=== PATIENT | female | born 1955 | race Caucasian/White ===

== ENCOUNTER 2020-06-07 08:20 | Day surgery (SDC) | payer MEDICARE, OTHER ==
[2020-06-07] MEDS ORDERED: LACTATED RINGERS 1,000 ML IV ONE (08:45)
[2020-06-07] MEDS ORDERED: fentaNYL 250 MCG/5 ML VIAL ONE (09:13)
[2020-06-07] MEDS ORDERED: MIDAZOLAM 2 MG/2 ML VIAL ONE ×3 (09:13→10:14)
--- NOTE | 2020-06-07 09:42 | HISTORY & PHYSICAL EXAMINATION ---
Chief Complaint - Chief Complaint Chief Complaint: history colon polyps History of Present Illness - History Obtained From Records Reviewed: yes History obtained from: pt Exam Limitations: none - History of Present Illness HPI Comment/Other: History of colon polyps. Last colonoscopy over 5 years ago. No lower intestinal symptoms. History - Past Medical History Cardiovascular: reports: Hypertension Respiratory: reports: None Endocrine/Autoimmune: reports: None GI: reports: None : reports: None HEENT: reports: None Psych: reports: None Musculoskeletal: reports: None Derm: reports: None MRSA Hx?: No - Past Surgical History Ortho: reports: Knee replacement Meds/Allgy - Home Medications Home Medications: Ambulatory Orders Medication Instructions Recorded Confirmed Losartan Potassium 50 mg PO DAILY 06/06/20 06/06/20 amLODIPine [Norvasc] 5 mg PO DAILY 06/06/20 06/07/20 - Allergies Allergies/Adverse Reactions: Allergies Allergy/AdvReac Type Severity Reaction Status Date / Time No Known Drug Allergies Allergy Verified 06/07/20 08:34 Review of Systems - Other Findings Other Findings: 10 pt ros as above otherwise unremarkable Exam - Vital Signs Reviewed Vital Signs: Yes Vital Signs: Vital Signs x48h Temp Pulse Resp BP Pulse Ox 06/07/20 08:34 36.6 C 94 18 189/84 H 98 - Physical Exam General Appearance: positive: No acute distress, Alert Eyes Bilateral: positive: Normal inspection, PERRL, EOMI ENT: positive: No signs of dehydration Neck: positive: No JVD Respiratory: positive: No respiratory distress Cardiovascular: positive: Regular rate & rhythm Abdomen: positive: Non-tender, No distention Neurologic/Psychiatric: positive: Oriented x3 Conclusion/Plan - Problem List (1) History of adenomatous polyp of colon Conclusion/Plan: plan colonscopy with possible biopsy. parq held and consent obtained
[2020-06-07 10:33] VITALS: BP 135/65
== END 2020-06-07 08:21 | disposition home or self-care (01) ==
LOC: SDS 08:20
PROVIDERS: ATTEND Surgery
DX: Z12.11 Encounter for screening for malignant neoplasm of colon (principal); K57.30 Diverticulosis of large intestine without perforation or abscess without bleeding; I10 Essential (primary) hypertension; Z86.010 Personal history of colon polyps
CPT/HCPCS: G0105; J3010; J7120

== ENCOUNTER 2020-06-11 11:17 | Outpatient (CLI) | payer MEDICARE, OTHER ==
--- NOTE | 2020-06-12 09:37 | Mammography Report ---
BILATERAL DIGITAL SCREENING MAMMOGRAM 3D/2D: 06/11/2020 CLINICAL: Routine screening. Comparison is made to exams dated: 04/10/2019 mammogram, 04/07/2018 mammogram, 03/26/2017 mammogram, 03/08 mammogram, and 03/19/2015 mammogram - [facility]. There are scattered fib roglandular elements in both breasts. No significant masses, calcifications, or other findings are seen in either breast. There has been no significant interval change. IMPRESSION: NEGATIVE There is no mammographic evidence of malignancy. A 1 year screening mammogram is recommended. This exam was interpreted at Station ID: [id number]. NOTE: For mammograms, a report in lay terms will be sent to the patient. Approximately 15% of breast malignancies will not be visualized mammographically. In the management of a palpable breast mass, a negative mammogram must not discourage biopsy of a clinically suspicious lesion. Electronically Signed By: Shamar Jaime M.D. ddp/penrad:06/11/2020 16:20:45 ACR BI-RADS Category 1: Negative 3341F PARENCHYMAL PATTERN: (A) - The breast(s) demonstrate(s) scattered fibroglandular densities. BI-RADS CATEGORY: (1) - 1 RECOMMENDATION: (ANNUAL) - Recommend routine annual screening mammography. [id number] 1 year screening LATERALITY: (B)
== END 2020-06-11 11:18 | disposition home or self-care (01) ==
LOC: DI 11:17
PROVIDERS: ATTEND Nurse Practitioner Family
DX: Z12.31 Encounter for screening mammogram for malignant neoplasm of breast (principal)

== ENCOUNTER 2021-04-29 10:50 | Outpatient (CLI) | payer MEDICARE, OTHER ==
--- NOTE | 2021-04-29 12:30 | DEXA Report ---
PROCEDURE: Dexa Spine and/or Hip INDICATIONS: OSTEROPOROSIS TECHNIQUE: Dual energy x-ray absorptiometry (DXA) was performed on a [employer]. Regions measur ed are the AP Spine, femoral neck, and if needed forearm. COMPARISON: None. FINDINGS: Lumbar Spine: Bone Mineral Density 1.280 g/cm/cm,T score 0.8, normal. Left Hip: Bone Mineral Density 1.004 g/cm/cm,T score 0.0, normal. Left Femoral Neck: Bone Mineral Density 0.916 g/cm/cm, T score -0.9, normal. (T score greater or equal to -1.0: NORMAL) (T score from -1.1 to -2.4: OSTEOPENIA) (T score less than or equal to -2.5 to: OSTEOPOROSIS) Impression: Bone mineral density within normal limits. Patients with diagnosis of osteoporosis or osteopenia should have regular bone mineral density assess ment. For those eligible for Medicare, routine testing is allowed once every 2 years. Testing frequ ency can be increased for patients who have rapidly progressing disease or for those who are receivin g medical therapy to restore bone mass. Reviewed by: Esteban Zamora MD on 04/29/2021 12:29 PM PST Approved by: Esteban Zamora MD on 04/29/2021 12:29 PM PST Station ID: [id number]
== END 2021-04-29 10:51 | disposition home or self-care (01) ==
LOC: DI 10:50
PROVIDERS: ATTEND Nurse Practitioner Family
DX: Z78.0 Asymptomatic menopausal state (principal)

== ENCOUNTER 2022-01-23 12:12 | Outpatient (CLI) | payer MEDICARE, OTHER ==
--- NOTE | 2022-01-23 15:22 | XRAY Report ---
PROCEDURE: Shoulder 3 View RT INDICATIONS: RIGHT SHOULDER PAIN TECHNIQUE: 3 views of the shoulder were acquired. COMPARISON: None. FINDINGS: Moderate acromioclavicular and severe glenohumeral joint degenerative changes present. A bony fragmen t projecting along the humeral head neck junction probably represents a large osteophyte, a loose bod y or fracture fragment is difficult to exclude. No glenohumeral joint dislocation. IMPRESSION: 1. Moderate acromioclavicular and severe glenohumeral joint degenerative changes. 2. A bony fragment projecting along the humeral head-neck junction probably represents a large osteop hyte, a loose body or fracture fragment is difficult to exclude. 3. If symptoms persist, follow-up radiographs and/or CT or MRI may be helpful for further evaluation. Reviewed by: Esteban Win MD on 01/23/2022 3:20 PM PST Approved by: Esteban Win MD on 01/23/2022 3:20 PM PST Station ID: [id number]
== END 2022-01-23 12:13 | disposition home or self-care (01) ==
LOC: DI 12:12
PROVIDERS: ATTEND Nurse Practitioner Family
DX: M19.011 Primary osteoarthritis, right shoulder (principal)

== ENCOUNTER 2022-02-13 14:51 | Outpatient (CLI) | payer MEDICARE, OTHER ==
--- NOTE | 2022-02-16 12:56 | Mammography Report ---
BILATERAL DIGITAL SCREENING MAMMOGRAM 3D/2D: 02/13/2022 CLINICAL: Routine screening. Comparison is made to exams dated: 06/11/2020 mammogram - [facility], 04/10/2019 mammo gram, and 04/07/2018 mammogram - [facility]. There are scattered areas of fibroglandular density in both breasts (category b / 25%-50% glandular t issue). No significant masses, calcifications, or other findings are seen in either breast. There has been no significant interval change. IMPRESSION: NEGATIVE There is no mammographic evidence of malignancy. A 1 year screening mammogram is recommended. Based on the Tyrer Cuzick model (a risk assessment model) the patients lifetime risk is 4.2% and her 10 year risk is 2.2%. According to the ACR, ACS, and NCCN guidelines, an annual breast MRI exam tom g with mammogram is recommended if the patients lifetime risk is 20% or greater. This exam was interpreted at Station ID: [id number]. NOTE: For mammograms, a report in lay terms will be sent to the patient. Approximately 15% of breast malignancies will not be visualized mammographically. In the management of a palpable breast mass, a negative mammogram must not discourage biopsy of a clinically suspicious lesion. Electronically Signed By: Fabrizio vu/penrad:02/13/2022 17:16:35 ACR BI-RADS Category 1: Negative 3341F PARENCHYMAL PATTERN: (A) - The breast(s) demonstrate(s) scattered fibroglandular densities. BI-RADS CATEGORY: (1) - 1 RECOMMENDATION: (ANNUAL) - Recommend routine annual screening mammography. [id number] 1 year screening LATERALITY: (B)
== END 2022-02-13 14:52 | disposition home or self-care (01) ==
LOC: DI 14:51
PROVIDERS: ATTEND Nurse Practitioner Family
DX: Z12.31 Encounter for screening mammogram for malignant neoplasm of breast (principal)

== ENCOUNTER 2022-12-03 09:22 | Outpatient (CLI) | payer MEDICARE, OTHER ==
--- NOTE | 2022-12-03 12:57 | CT Report ---
PROCEDURE: ABDOMEN W INDICATIONS: RIGHT UPPER QUAD PAIN CONTRAST: 100ml omni 300 TECHNIQUE: After the administration of oral and intravenous contrast, 5 mm thick sections acquired from the diap hragms to the iliac crests. 5 mm thick coronal and sagittal reformats were acquired. For radiation dose reduction, the following was used: automated exposure control, adjustment of mA and/or kV accor ding to patient size. COMPARISON: None. FINDINGS: Image quality: Excellent. Lung bases and heart: Small hiatal hernia. Liver: No solid mass. Gallbladder and biliary tree: No radiopaque stones or wall thickening. No biliary dilation. Spleen: No splenomegaly. Pancreas: No pancreatic ductal dilation. Adrenals: No adrenal nodule. Small calcification posterior to the right adrenal gland, likely benign. Calcification. Kidneys and ureters: No hydronephrosis. No renal cystic lesion which requires follow up. No solid mas s. Bowel and peritoneum: No bowel distension. No pathologic free fluid. Diverticulosis without evidence of diverticulitis. Lymph nodes: No central or retroperitoneal adenopathy. Vessels: No infrarenal aortic aneurysm. Bones: No aggressive osseous abnormality. Other: No significant ventral hernia. IMPRESSION: No findings to explain the patient's right upper quadrant pain. No nephrolithiasis. Normal gallbladde r. Normal appendix. Colonic diverticulosis without evidence of diverticulitis. Reviewed by: Ricky Mercado on 12/03/2022 12:56 PM PDT Approved by: Ricky Mercado on 12/03/2022 12:56 PM PDT Station ID: [id number]
[2022-12-03] MEDS ORDERED: BARIUM SULFATE 450 ML BOTTLE PO ONE (13:43)
[2022-12-03] MEDS ORDERED: iohexoL-300 100 ML VIAL IVP ONE (13:44)
== END 2022-12-03 09:23 | disposition home or self-care (01) ==
LOC: DI 09:22
PROVIDERS: ATTEND Nurse Practitioner Family
DX: R10.11 Right upper quadrant pain (principal); K57.30 Diverticulosis of large intestine without perforation or abscess without bleeding
CPT/HCPCS: 74160; A9270; Q9967

== ENCOUNTER 2023-04-05 13:48 | Outpatient (CLI) | payer MEDICARE, OTHER ==
--- NOTE | 2023-04-06 11:58 | Mammography Report ---
BILATERAL DIGITAL SCREENING MAMMOGRAM 3D/2D: 04/05/2023 CLINICAL: Routine screening. Comparison is made to exams dated: 02/13/2022 mammogram - [facility], 04/10/2019 mamm ogram - [facility], 06/11/2020 mammogram - [facility], 04/07/2018 mammogram, 03/26/2017 mammogram, and 03/25/2016 mammogram - [facility]. There are scattered areas of fibroglandular density in both breasts (category b / 25%-50% glandular t issue). No significant masses, calcifications, or other findings are seen in either breast. There has been no significant interval change. IMPRESSION: NEGATIVE There is no mammographic evidence of malignancy. A 1 year screening mammogram is recommended. Based on the Tyrer Cuzick model (a risk assessment model) the patient's lifetime risk is 4.0% and her 10 year risk is 2.2%. According to the ACR, ACS, and NCCN guidelines, an annual breast MRI exam tom g with mammogram is recommended if the patients lifetime risk is 20% or greater. This exam was interpreted at Station ID: [id number]. NOTE: For mammograms, a report in lay terms will be sent to the patient. Approximately 15% of breast malignancies will not be visualized mammographically. In the management of a palpable breast mass, a negative mammogram must not discourage biopsy of a clinically suspicious lesion. Electronically Signed By: Aicha vee/renetta:04/05/2023 17:00:01 ACR BI-RADS Category 1: Negative 3341F PARENCHYMAL PATTERN: (A) - The breast(s) demonstrate(s) scattered fibroglandular densities. BI-RADS CATEGORY: (1) - 1 Mammogram [id number] 1 year screening LATERALITY: (B)
== END 2023-04-05 13:49 | disposition home or self-care (01) ==
LOC: DI 13:48
PROVIDERS: ATTEND Nurse Practitioner Family
DX: Z12.31 Encounter for screening mammogram for malignant neoplasm of breast (principal); R92.323 Mammographic fibroglandular density, bilateral breasts

== ENCOUNTER 2023-05-17 12:43 | Outpatient (CLI) | payer MEDICARE, OTHER ==
--- NOTE | 2023-05-17 17:39 | DEXA Report ---
PROCEDURE: Dexa Spine and/or Hip INDICATIONS: POST MENOPAUSAL TECHNIQUE: Dual energy x-ray absorptiometry (DXA) was performed on a [employer]. Regions measur ed are the AP Spine, femoral neck, and if needed forearm. COMPARISON: DEXA 04/29/2021. FINDINGS: Lumbar Spine: Bone Mineral Density: 1.35 to g/cm/cm, T score: 1.4. There is significant interval increase in bone mineral density 5.6%. Left Femoral Neck: Bone Mineral Density: 0.959 g/cm/cm, T score: -0.6. Left Hip: Bone Mineral Density: 1.016 g/cm/cm, T score: 0.1. No significant change. (T score greater or equal to -1.0: NORMAL) (T score from -1.1 to -2.4: OSTEOPENIA) (T score less than or equal to -2.5 to: OSTEOPOROSIS) Impression: By WHO criteria, this patient has normal bone density. Interval statistical increase in bone mineral density of the lumbar spine. No statistical interval change in bone mineral density of the hip. Patients with diagnosis of osteoporosis or osteopenia should have regular bone mineral density assess ment. For those eligible for Medicare, routine testing is allowed once every 2 years. Testing frequ ency can be increased for patients who have rapidly progressing disease or for those who are receivin g medical therapy to restore bone mass. Reviewed by: Geovany Fan MD on 05/17/2023 5:37 PM PDT Approved by: Geovany Fan MD on 05/17/2023 5:37 PM PDT Station ID: [id number]
== END 2023-05-17 12:44 | disposition home or self-care (01) ==
LOC: DI 12:43
PROVIDERS: ATTEND Nurse Practitioner Family
DX: Z78.0 Asymptomatic menopausal state (principal)